=== PATIENT | female | born 1950 | race Caucasian/White ===

== ENCOUNTER 2021-11-13 14:47 | Outpatient (CLI) | payer OTHER, SELFPAY ==
--- NOTE | 2021-11-13 15:00 | CRLHL7_ITS ---
For Patients: As a result of the Century Cures Act, medical imaging exams and procedure reports are released immediately into your electronic medical record. You may view this report before your referring provider. If you have questions, please contact your health care provider. BILATERAL SCREENING MAMMOGRAM WITH COMPUTER-AIDED DETECTION AND TOMOSYNTHESIS TECHNIQUE: CC and MLO views were obtained. These mammographic images have been obtained using full-field digital technique. These mammographic images were interpreted with the benefit of computer-aided detection. Breast Tomosynthesis was used in this interpretation. COMPARISON FILM: 09/06/20, 11/08/19, 11/05/18. FINDINGS: The breasts are heterogeneously dense, which may obscure small masses IMPRESSION: There is no radiographic evidence for malignancy. ASSESSMENT: BI-RADS Category 2: Benign RECOMMENDATION: Routine screening mammogram in 1 year. A lay language report of this examination will be provided to the patient. Camden Paz M.D. Diagnostic Radiologist [email or web address] JAMESON/Dictated by: Camden Paz MD @ 11/14/2021 8:23:00 AM (Electronically Signed)
== END 2021-11-13 14:48 | disposition home or self-care (01) ==
PROVIDERS: PCP Family Medicine; Visit Provider Family Medicine
DX: Z12.31 Encounter for screening mammogram for malignant neoplasm of breast (principal); R92.2 Inconclusive mammogram
CPT/HCPCS: 77063; 77067

== ENCOUNTER 2022-10-11 11:08 | Outpatient (CLI) | payer OTHER, SELFPAY | END 2022-10-11 11:09 | disposition home or self-care (01) | PROVIDERS: PCP Family Medicine; Visit Provider Family Medicine | DX: E55.9 Vitamin D deficiency, unspecified (principal); F32.A Depression, unspecified; Z13.0 Encounter for screening for diseases of the blood and blood-forming organs and certain disorders involving the immune mechanism; Z13.1 Encounter for screening for diabetes mellitus | CPT/HCPCS: 80048 ==

== ENCOUNTER 2022-11-19 07:12 | Outpatient (CLI) | payer OTHER, SELFPAY ==
--- NOTE | 2022-11-19 08:19 | W.ANESCHARGE ---
Anesthesia Charges Start Date/Time Anesthesia Start Date: 11/19/22 Anesthesia Start Time: 08:20 Stop Date/Time Anesthesia Stop Date: 11/19/22 Anesthesia Stop Time: 08:52 Summary Extremes of Age - Over 70 or under 1: MDA
--- NOTE | 2022-11-19 08:57 | P.ANES_ITS ---
Anesthesia Charges Start Date/Time Anesthesia Start Date: 11/19/22 Anesthesia Start Time: 08:20 Stop Date/Time Anesthesia Stop Date: 11/19/22 Anesthesia Stop Time: 08:52 Summary Extremes of Age - Over 70 or under 1: TRAVEL MED SURG RN
== END 2022-11-19 07:13 | disposition home or self-care (01) ==
LOC: OP CLINIC 07:13
PROVIDERS: PCP Family Medicine; Visit Provider Surgery
DX: Z12.11 Encounter for screening for malignant neoplasm of colon (principal); K57.30 Diverticulosis of large intestine without perforation or abscess without bleeding; Z86.010 Personal history of colon polyps
CPT/HCPCS: 00812; 45378; 99100; J2704

== ENCOUNTER 2023-10-24 11:17 | Outpatient (CLI) | payer OTHER, SELFPAY ==
--- OUTSIDE RECORDS SUMMARY | 2023-10-24 11:20 | XMS_ITS ---
Author Organization [facility] Address [address] [place] [address] Care Team Providers Care Sociology Teacher Name Role Phone Unavailable Unavailable Unavailable Surgery Details Not on file Complications Check Surgery Details section. Procedure Estimated Blood Loss Check Surgery Details section. Procedure Findings Check Surgery Details section. Procedure Specimens Taken Check Surgery Details section.
--- OUTSIDE RECORDS SUMMARY | 2023-10-24 11:20 | XMS_ITS | Clinical Summary ---
Author Organization [facility] Address [address] [place] [address] Care Team Providers Care Geologic Technician Name Role Phone Elsewhere, Pcp Primary Care Provider Unavailabl e Source Comments Patient records contain information from all sites at [facility]. For routine questions regarding patient records, call [phone] during business hours, M-F 8:00 AM - 5:00 PM Central Time. Record requests for emergency care only can be directed to [phone] at any time.[facility] Allergies No known active allergies Medications Medication Sig Dispensed Refills Start Date End Date Status venlafaxine XR (EFFEXOR-XR) 75 mg 24 hr capsule TK 1 C PO D IN THE MORNING 3 12/12/2018 Active venlafaxine XR (EFFEXOR-XR) 150 mg 24 hr capsule Take 150 mg by mouth every evening. 3 12/12/2018 Active zolpidem (AMBIEN) 10 mg tablet 0.5 tablets at bedtime. 12/26/2018 Active traZODone (DESYREL) 100 mg tablet TK 1 T PO HS 3 12/12/2018 Active oxyCODONE-acetaminophe n (PERCOCET) 5-325 mg per tablet TK 1 OR 2 TS PO Q 4 H PRN 0 12/02/2018 Active nortriptyline (PAMELOR) 50 mg capsule TK 1 C PO HS 3 12/12/2018 Active amphetamine-dextroamph etamine (ADDERALL XR) 20 mg 24 hr capsule TK 1 C PO ONCE D IN THE MORNING 0 12/02/2018 Active busPIRone (BUSPAR) 10 mg tablet Take 1 tablet by mouth 2 (two) times a day. 02/24/2023 Active EC-Naproxen 500 mg EC tablet Take 1 tablet by mouth 2 (two) times a day. 04/23/2023 Active Active Problems Problem Noted Date Diagnosed Date Primary Osteoarthritis Temporomandibular Joint 0 06/06/2023 Arthralgia Of Bilateral Temporomandibular Joint 06/06/2023 Limited Mandibular Motion 06/06/2023 Social History Tobacco Use Types Packs/Day Years Used Date Smoking Tobacco: Former Cigarettes Smokeless Tobacco: Never Tobacco Cessation:Counseling Given: Not Answered [facility] Utilities Answer Date Recorded In the past 12 months has th e [employer], gas, oil, or water [employer] threatened to shut off services in your home? No 06/03/2023 Exercise Vital Sign Answer Date Recorde d On average, how many days pe r week do you engage in moderate to strenuous exercise (like a brisk walk)? 3 days 06/03/2023 On average, how many minutes do you engage in exercise at this level? 30 min 06/03/2023 Hunger Vital Sign Answer Date Recorded Within the past 12 months, y ou worried that your food would run out before you got the money to buy more. Never true 06/03/19 Within the past 12 months, t he food you bought just didn't last and you didn't have money to get more. Never true 06/03/2023 PRAPARE - Transportation Answer Date Re corded In the past 12 months, has l ack of transportation kept you from medical appointments or from getting medications? No 05/09 In the past 12 months, has l ack of transportation kept you from meetings, work, or from getting things needed for daily living? No 06/03/2023 Nutrition Answer Date Recorded Nutrition: EVOO Fat Source Unknown 06/03 On average, how many serving s of fruits and vegetables do you eat per day (serving size is equal to 1 cup or approximately the size of a tennis ball)? 3-5 06/03/2023 Dental Answer Date Recorded Dental: Regular Dentist Yes 06/03/19 Employment Answer Date Recorded Employment status Retired 06/03/2023 Housing Stability Answer Date Recorded What is your living situation today? I have a [facility] place to live 06/03/2023 Sex and Gender Information Value Date Recorded Sex Assigned at Female 06/03/2023 10:17 AM GUM PULLER Gender Identity Female 06/03/2023 10:17 AM GUM PULLER Sexual Orientation Straight 06/03/2023 10 :17 AM GUM PULLER Last Filed Vital Signs Vital Sign Reading Time Taken Comments Blood Pressure 131/68 12/27/2018 11:02 AM CDT Pulse 96 12/27/2018 11:02 AM CDT Temperature 36.8 ??C (98.2 ??F) 12/27/2018 1 1:02 AM CDT Respiratory Rate 18 12/27/2018 11:0 2 AM CDT Oxygen Saturation - - Inhaled Oxygen Concentration - - Weight 58.8 kg (129 lb 10.1 oz) 024 10:02 AM GUM PULLER Height 159.5 cm (5' 2.8) 06/05/2023 10 :02 AM GUM PULLER Body Mass Index 23.11 06/05/2023 10:02 AM GUM PULLER Plan of Treatment Scheduled Procedures Name Priority Associated Diagnoses Date/Ti me RECONSTRUCTION TOTAL TEMPOROMANDIBULAR JOINT WITH FOSSA AND CONDYLAR IMPLANT Primary Osteoarthritis Temporomandibular Joint Arthralgia Of Bilateral Temporomandibular Joint Limited Mandibular Motion HARVEST FAT GRAFT ABDOMEN Primary Osteoarthritis Temporomandibular Joint Arthralgia Of Bilateral Temporomandibular Joint Limited Mandibular Motion Health Maintenance Due Date Last Done Comments Bone Density Scan (Osteoporo sis Screen) 1950 CT Colonography 1950 Cologuard 1950 Colonoscopy 1950 Colorectal Cancer Screening 1950 FIT 1950 Fasting Glucose for Diabetes Screening 1950 Hepatitis C Screening 1950 Mammogram 1950 COVID-19 Vaccine (4 - 2022-2 4 season) 2022 02/11/2022, 07/03/2020, 06/05/2020 Depression Screening (Annual PHQ-2) 04/07/2023 Fall Risk Screen (Annual) 04/07/2023 Influenza Vaccine (#1) 2024 , 12/31/2019, 12/28/2018, Additional history exists DTaP,Tdap,and Td Vaccines (4 - Td or Tdap) 09/06/2030 09/06/2020, 02/25/2011, 06/17/2006 Zoster Vaccines Completed 12/28/2018, 09/05, 04/04/2011 Pneumococcal vaccine (65+ years) Completed 09/06/2020, 04/03/2016, 03/16/2013 Care Teams Geologic Technician Relationship Specialty Start Date End Date Elsewhere, Pcp PCP - General 04/26/19
--- OUTSIDE RECORDS SUMMARY | 2023-10-24 11:20 | XMS_ITS | Referral Summary ---
Author Organization [facility] Address [address] [place] [address] Care Team Providers Care Newborn Hearing Screener Name Role Phone Elsewhere, Pcp Primary Care Provider Unavailabl e Source Comments Patient records contain information from all sites at [facility]. For routine questions regarding patient records, call [phone] during business hours, M-F 8:00 AM - 5:00 PM Central Time. Record requests for emergency care only can be directed to [phone] at any time.[facility] Allergies No known active allergies Medications Medication [...] Tobacco: Never Tobacco Cessation:Counseling Given: Not Answered [facility] Utilities Answer Date Recorded In the past 12 months has th e [employer], gas, oil, or water [employer] threatened to shut off services in your [...] your living situation today? I have a [facility] place to live 06/03/2023 Sex and Gender Information Value Date Recorded Sex Assigned at Female 06/03/2023 10:17 AM SEMICONDUCTOR MANUFACTURING TECHNICIAN Gender Identity Female 06/03/2023 10:17 AM SEMICONDUCTOR MANUFACTURING TECHNICIAN Sexual Orientation Straight 06/03/2023 10 :17 AM SEMICONDUCTOR MANUFACTURING TECHNICIAN Last Filed Vital Signs Vital Sign Reading Time Taken Comments Blood Pressure 131/68 12/27/2018 11:02 AM CDT Pulse 96 12/27/2018 11:02 AM CDT Temperature 36.8 ??C (98.2 ??F) 12/27/2018 1 1:02 AM CDT Respiratory Rate 18 12/27/2018 11:0 2 AM CDT Oxygen Saturation - - Inhaled Oxygen Concentration - - Weight 58.8 kg (129 lb 10.1 oz) 024 10:02 AM SEMICONDUCTOR MANUFACTURING TECHNICIAN Height 159.5 cm (5' 2.8) 06/05/2023 10 :02 AM SEMICONDUCTOR MANUFACTURING TECHNICIAN Body Mass Index 23.11 06/05/2023 10:02 AM SEMICONDUCTOR MANUFACTURING TECHNICIAN Plan of Treatment Scheduled Procedures Name Priority Associated Diagnoses Date/Ti me RECONSTRUCTION TOTAL TEMPOROMANDIBULAR JOINT WITH FOSSA AND CONDYLAR IMPLANT Primary Osteoarthritis Temporomandibular Joint Arthralgia Of Bilateral Temporomandibular Joint Limited Mandibular Motion HARVEST FAT GRAFT ABDOMEN Primary Osteoarthritis Temporomandibular Joint Arthralgia Of Bilateral Temporomandibular Joint Limited Mandibular Motion Care Teams Newborn Hearing Screener Relationship Specialty Start Date End Date Elsewhere, Pcp PCP - General 04/26/19
== END 2023-10-24 11:18 | disposition home or self-care (01) ==
PROVIDERS: PCP Family Medicine; Visit Provider Family Medicine
DX: E55.9 Vitamin D deficiency, unspecified (principal); Z13.220 Encounter for screening for lipoid disorders; Z13.29 Encounter for screening for other suspected endocrine disorder
CPT/HCPCS: 80048; 80061; 84443

== ENCOUNTER 2024-03-19 14:52 | Outpatient (CLI) | payer OTHER, SELFPAY ==
--- NOTE | 2024-03-19 15:00 | CRLHL7_ITS ---
For Patients: As a result of the Century Cures Act, medical imaging exams and procedure reports are released immediately into your electronic medical record. You may view this report before your referring provider. If you have questions, please contact your health care provider. BILATERAL SCREENING MAMMOGRAM WITH COMPUTER-AIDED DETECTION AND TOMOSYNTHESIS TECHNIQUE: CC and MLO views were obtained. These mammographic images have been obtained using full-field digital technique. These mammographic images were interpreted with the benefit of computer-aided detection. Breast Tomosynthesis was used in this interpretation. COMPARISON FILM: 11/13/21, 09/06/20, 11/08/19. FINDINGS: There are scattered areas of fibroglandular density. IMPRESSION: There is no radiographic evidence for malignancy. ASSESSMENT: BI-RADS Category 2: Benign RECOMMENDATION: Routine screening mammogram in 1 year. A lay language report of this examination will be provided to the patient. Camden Paz M.D. Diagnostic Radiologist [email or web address] SP/Dictated by: Camden Paz MD @ 03/22/2024 10:03:00 AM (Electronically Signed)
== END 2024-03-19 14:53 | disposition home or self-care (01) ==
LOC: MAMMO 14:54
PROVIDERS: PCP Family Medicine; Visit Provider Family Medicine
DX: Z12.31 Encounter for screening mammogram for malignant neoplasm of breast (principal)
CPT/HCPCS: 77063; 77067

== ENCOUNTER 2024-11-03 11:39 | Outpatient (CLI) | payer BC, SELFPAY | END 2024-11-03 11:40 | disposition home or self-care (01) | PROVIDERS: PCP Family Medicine; Visit Provider Family Medicine | DX: R20.2 Paresthesia of skin (principal); G43.909 Migraine, unspecified, not intractable, without status migrainosus | CPT/HCPCS: 80048; 82607 ==